=== PATIENT | female | born 1995 | race Two or more races ===

== ENCOUNTER 2018-12-01 05:18 | Inpatient (IN) | payer OTHER ==
[~2018-12-01] VITALS: Ht 154.9 cm; Wt 65.3 kg
[2018-12-01] VITALS (12 sets, daily range): BP systolic 121–136; BP diastolic 72–88; PULSE 72–88; RESP 14–28; Ht 154.9 cm; Wt 65.3 kg
[2018-12-01] MEDS ORDERED: ALBU18HF INHALATION (06:14)
[2018-12-01] MEDS: LACTATED RINGER'S 1,000 ML IV SCH ×3 (06:27→19:58)
[2018-12-01] MEDS ORDERED: ALBUTEROL 0.083% (NEB) 2.5 MG/3 ML AMP HHN PRN (07:00)
[2018-12-01] MEDS ORDERED: OXYCODONE/ACETAMINOPHEN (5/325) TAB PO PRN ×2 (07:00)
[2018-12-01] MEDS ORDERED: HYDROmorphONE 1 MG/5 ML IV SYRINGE IV PRN ×3 (07:00)
[2018-12-01] MEDS ORDERED: MEPERIDINE 25 MG INJ IV PRN (07:00)
[2018-12-01] MEDS ORDERED: ONDANSETRON 4 MG INJ IV PRN ×2 (07:00→08:00)
--- NOTE | 2018-12-01 07:03 | PREAC ---
Date/Time of Note Date/Time of Note DATE: 12/01/18 TIME: 07:01 Anesthesia Eval and Record Evaluation Time Pre-Procedure Interview DATE: 12/01/18 TIME: 07:01 Age 23 Sex female NPO: 8 hrs Preoperative diagnosis right ovarian cyst Planned procedure exploratory laparotomy, right ovarian cystectomy, possible right salpingo ophorectomy Past Medical History Past Medical History: Includes Pulm: Smoking Hx (1 cig every 1-2 days, smoked yesterday), Asthma (last symptoms several months ago, r/t weather changes) Surgery & Anesthesia Issues No known issue Meds Anticoagulation: No Beta Binh within 24 hr: No Reason Beta Binh not given: Pt. not on B-Binh Reported Medications Albuterol Sulfate* (Ventolin HFA*) 18 Gm Hfa.aer.ad, 2 PUFF INHALATION Q4H, #1 INHALER 12/01/18 Current Medications Lactated Ringer's 1,000 ml @ 125 mls/hr Q8H IV Last administered on 12/01/18at 06:27; Admin Dose 125 MLS/HR; Start 12/01/18 at 06:30 Meds reviewed: Yes Allergies Coded Allergies: No Known Allergy (Unverified , 12/01/18) Allergies Reviewed: Yes Labs/Studies Labs Reviewed: Reviewed by anesthesiologist Result Diagram: 12/01/18 0555 12/01/18 0555 Laboratory Tests 12/01/18 05:55 test: Negative Pre-procedure Exam Last vitals Vital Signs Date Temp Pulse Resp B/P (MAP) Pulse Ox O2 O2 Flow FiO2 Time Delivery Rate 12/01/18 98.9 72 18 128/81 95 Room Air 06:10 (97) Airway: Adequate mouth opening, Adequate thyromental dist Mallampati: Mallampati II Teeth: Normal Lung: Normal Heart: Normal ASA Physical Status ASA physical status: 2 Emergency: None Planned Anesthetic General/MAC: ETT Planned Pain Management Parenteral pain med, Local by surgeon Pre-operative Attestations Prior to commencing anesthesia and surgery, the patient was re-evaluated, there was verification of: *The patient's identity *The results of appropriate recent lab work and preoperative vital signs *The above evaluation not changing prior to induction *Anesthetic plan, risk benefits, alternative and complications discussed with patient/family; questions answered; patient/family understands, accepts and wishes to proceed. SALAPATE,PITO Dec 01, 2018 07:03
[2018-12-01] MEDS ORDERED: LIDOCAINE 4% (MPF) 5 ML INJ ONE (07:05)
[2018-12-01] MEDS ORDERED: ROCURONIUM 50 MG INJ ONE (07:09)
[2018-12-01] MEDS ORDERED: HYDROmorphONE 2 MG/ML SYG ONE (07:09)
[2018-12-01] MEDS ORDERED: LIDOCAINE 2% (SDV) 5 ML INJ ONE (07:09)
[2018-12-01] MEDS ORDERED: MIDAZOLAM 1 MG/ML 2 ML INJ ONE (07:09)
[2018-12-01] MEDS ORDERED: PROPOFOL 20 ML ONE (07:09)
[2018-12-01] MEDS ORDERED: CEFAZOLIN 1 GM INJ ONE (07:12)
--- NOTE | 2018-12-01 07:39 | HP ---
Date/Time of Note Date/Time of Note DATE: 12/01/18 TIME: 07:36 Assessment/Plan VTE Prophylaxis SCD applied (from Nsg): Yes Pharmacological prophylaxis: LMWH Lines/Catheters IV Catheter Type (from Nrsg): Peripheral IV Assessment/Plan Assessment/Plan Assessment: persistent R. ovarian cyst Plan: Exploratory laparotomy R. ovarian cystectomy Result Diagram: 12/01/18 0555 12/01/18 0555 Results 24hrs Laboratory Tests Test 12/01/18 05:55 White Blood Count 4.3 L Red Blood Count 4.51 Hemoglobin 13.4 Hematocrit 40.3 Mean Corpuscular Volume 89.4 Mean Corpuscular Hemoglobin 29.7 Mean Corpuscular Hemoglobin Concent 33.3 Red Cell Distribution Width 12.6 Platelet Count 191 Mean Platelet Volume 10.9 H Immature Granulocytes % 0.000 L Neutrophils % 36.0 L Lymphocytes % 47.7 Monocytes % 11.2 H Eosinophils % 4.2 Basophils % 0.9 Nucleated Red Blood Cells % 0.0 Immature Granulocytes # 0.000 Neutrophils # 1.6 Lymphocytes # 2.1 Monocytes # 0.5 Eosinophils # 0.2 Basophils # 0.0 Nucleated Red Blood Cells # 0.0 CBC Results Faxed/Phoned 1 *H Prothrombin Time 11.5 L Prothrombin Time Ratio 0.9 INR International Normalized Ratio 0.83 Activated Partial Thromboplast Time 26.2 Sodium Level 145 H Potassium Level 4.2 Chloride Level 113 H Carbon Dioxide Level 21 Anion Gap 11 Blood Urea Nitrogen 16 Creatinine 0.92 Est Glomerular Filtrat Rate mL/min > 60 Glucose Level 88 Calcium Level 9.0 Total Bilirubin 0.5 Direct Bilirubin 0.00 Indirect Bilirubin 0.5 Aspartate Amino Transf (AST/SGOT) 32 Alanine Aminotransferase (ALT/SGPT) 29 Alkaline Phosphatase 75 Total Protein 7.2 Albumin 4.0 Globulin 3.20 Albumin/Globulin Ratio 1.25 HPI/ROS Admit Date/Time Admit Date/Time Dec 01, 2018 at 05:18 Hx of Present Illness 23 YO patient with persistent ovarian cyst has been scheduled for Exploratory laparotomy and cystectomy. Risks and benefits and indications and alternatives discussed with patient. Possible risks of infection, bleeding, damage to other organs, blood transfusion discussed with patient. all her questions answered. Informed consent obtained. ROS Constitutional: no complaints, improved Eyes: no complaints ENT: no complaints Respiratory: no complaints Cardiovascular: no complaints Gastrointestinal: no complaints Genitourinary: no complaints Musculoskeletal: no complaints Skin: no complaints Neurologic: no complaints Endocrine: no complaints Lymphatic: no complaints Psychological: no complaints, nl mood/affect Immunologic: no complaints PMH/Family/Social Past Medical History Asthma Medications Current Medications Lactated Ringer's 1,000 ml @ 125 mls/hr Q8H IV Last administered on 12/01/18at 06:27; Admin Dose 125 MLS/HR; Start 12/01/18 at 06:30 Hydromorphone HCl (Dilaudid) 0.2 mg PACU PRN IV MILD PAIN 1-3; Start 12/01/18 at 07:00; Stop 12/01/18 at 13:00 Hydromorphone HCl (Dilaudid) 0.4 mg PACU PRN IV MOD PAIN 4-6; Start 12/01/18 at 07:00; Stop 12/01/18 at 13:00 Hydromorphone HCl (Dilaudid) 0.6 mg PACU PRN IV SEVERE PAIN 7-10; Start 12/01/18 at 07:00; Stop 12/01/18 at 13:00 Oxycodone/ Acetaminophen (Percocet (5/ 325)) 1 tab PACU ORDER PRN PO .PAIN 1-5; Start 12/01/18 at 07:00; Stop 12/01/18 at 13:00 Oxycodone/ Acetaminophen (Percocet (5/ 325)) 2 tab PACU ORDER PRN PO .PAIN 6-10; Start 12/01/18 at 07:00; Stop 12/01/18 at 13:00 Ondansetron HCl (Zofran Inj) 4 mg PACU ORDER PRN IV NAUSEA/VOMITING; Start 12/01/18 at 07:00; Stop 12/01/18 at 13:00 Albuterol (Proventil 0.083% (Neb)) 2.5 mg PACU ORDER PRN HHN .WHEEZING; Start 12/01/18 at 07:00; Stop 12/01/18 at 13:00 Meperidine HCl (Demerol) 25 mg PACU ORDER PRN IV .RIGORS; Start 12/01/18 at 07:00; Stop 12/01/18 at 13:00 Coded Allergies: No Known Allergy (Unverified , 12/01/18) Past Surgical History C/S x 1 Family History Significant Family History: no pertinent family hx Social History Alcohol Use: none Smoking Status: Current some day smoker Drug Use: none Exam/Review of Systems Vital Signs Vitals Vital Signs Date Temp Pulse Resp B/P (MAP) Pulse Ox O2 O2 Flow FiO2 Time Delivery Rate 12/01/18 98.9 72 18 128/81 95 Room Air 06:10 (97) Exam Constitutional: alert, oriented, well developed Psych: no complaints, nl mood/affect Head: normocephalic, atraumatic Eyes: nl conjunctiva, EOMI, nl lids, nl sclera, PERRL ENMT: nl external ears & nose, nl lips & teeth, nl nasal mucosa & septum Neck: supple, non-tender Respiratory: clear to auscultation, normal air movement Cardiovascular: regular rate and rhythm, nl pulses Gastrointestinal: soft, nl liver, spleen, non-tender Musculoskeletal: nl extremities to inspection Extremities: normal pulses Neurological: PASSENGER [employer] II-XII intact, nl mental status, nl speech, nl strength Skin: nl turgor; No rash or lesions Lymph: nl lymph nodes MARYSOL PRINCE MD Dec 01, 2018 07:39
[2018-12-01] MEDS ORDERED: DEXAMETHASONE 4 MG/ML 5 ML INJ ONE (07:51)
[2018-12-01] MEDS ORDERED: METOCLOPRAMIDE 10 MG INJ ONE (07:51)
[2018-12-01] MEDS ORDERED: ONDANSETRON 4 MG INJ ONE (07:51)
[2018-12-01] MEDS ORDERED: FAMOTIDINE 20 MG INJ ONE (07:52)
[2018-12-01] MEDS ORDERED: HYDROCODONE/APAP (5/325) TAB PO PRN (08:00)
[2018-12-01] MEDS ORDERED: GLYCOPYRROLATE 0.4 MG INJ ONE (08:27)
[2018-12-01] MEDS ORDERED: NEOSTIGMINE 3 MG/3 ML SYRINGE ONE (08:27)
--- NOTE | 2018-12-01 10:26 | OPR ---
Date/Time of Note Date/Time of Note DATE: 12/01/18 TIME: 10:22 Operative Report Procedure Date: Dec 01, 2018 Preoperative Diagnosis Left Dermoid Cyst Postoperative Diagnosis same Operation/Procedure Performed Left ovarian cystectomy Surgeon Siomara Salcido MD Religion Teacher None Anesthesia Type: general Estimated Blood Loss: 10 - 50 ml's Transfusion none Specimen Left Dermoid Cyst Grafts/Implants none Tubes/Drains Dumont Cath Complications none Pt Condition Post Procedure: stable Disposition: PACU Procedure Description FINDINGS: Left 9 cm Dermoid Cyst INFORMED CONSENT: Please see my preop H and P for the consent process. DESCRIPTION OF PROCEDURE: She was taken to the operating room. General anesthesia was induced. She was prepped and draped in the usual sterile fashion. Vaginal prep and abdominal prep was done. Dumont catheter was inserted. She was in the supine position. After she was prepped and draped, surgical time out was done, surgery and patient was identified. Then, we proceeded and made a Pfannenstiel skin incision. Incision was taken down in layers. The fascia was cut, undermined, from the underlying muscle using sharp and blunt dissection. All the bleeders were cauterized. the cyst was externalized and wrapped with laps. The cyst wall was cut using knife and the cyst was and dissected off the ovary using sharp and blunt dissection. the cyst was removed intact. 3-0 Chromic and then Vicryl was used to stop the bleeding and reapproximate the ovary. there was no bleeding from the surgical site. I explored the abdomen, there were no laparotomy packs left inside. The peritoneum was closed using 2-0 Vicryl. The rectus muscles reapproximated using 2-0 Vicryl. Rectus muscles, rectus fascia were evaluated, all bleeders cauterized. Rectus fascia was closed using #1 Vicryl. Subcutaneous tissue was cleaned, irrigated, all bleeders cauterized and closed using 3-0 plain and then the skin closed using 4-0 Monocryl in a subcuticular fashion. All counts were correct. The patient tolerated the procedure well. SIOMARA SALCIDO MD Dec 01, 2018 10:26
--- NOTE | 2018-12-01 10:38 | PAC ---
Date/Time of Note Date/Time of Note DATE: 12/01/18 TIME: 10:38 Post-Anesthesia Notes Post-Anesthesia Note Last documented vital signs Vital Signs Date Temp Pulse Resp B/P (MAP) Pulse Ox O2 O2 Flow FiO2 Time Delivery Rate 12/01/18 98.8 73 18 121/76 94 Room Air 10:18 (91) 12/01/18 8.0 09:01 Activity: WNL Respiratory function: WNL Cardiovascular function: WNL Mental status: Baseline Pain reasonably controlled: Yes Hydration appropriate: Yes Nausea/Vomiting absent: Yes PITO SPRING Dec 01, 2018 10:38
[2018-12-01] MEDS: HYDROCODONE/APAP (5/325) TAB PO PRN ×2 (11:43→17:44)
[2018-12-01] MEDS: morphine 2 MG INJ IV PRN ×3 (13:09→19:53)
[2018-12-01] MEDS: KETOROLAC 30 MG INJ IV PRN ×2 (16:17→22:16)
[2018-12-01] MEDS: MAGNESIUM HYDROXIDE 30ML CUP PO SCH (21:28)
[2018-12-01] MEDS: MINERAL OIL 30ML CUP PO SCH (21:28)
[2018-12-02 01:56] VITALS: BP 124/75; PULSE 81; RESP 17
[2018-12-02] MEDS: KETOROLAC 30 MG INJ IV PRN (04:08)
[2018-12-02] MEDS: LACTATED RINGER'S 1,000 ML IV SCH (04:08)
[2018-12-02 07:25] VITALS: BP 131/76; PULSE 98; RESP 18
[2018-12-02] MEDS ORDERED: MAGNESIUM CITRATE 300 ML BTL PO ONE (07:30)
[2018-12-02] MEDS: HYDROCODONE/APAP (5/325) TAB PO PRN (07:52)
--- NOTE | 2018-12-02 08:55 | DS ---
Date/Time of Note Date/Time of Note DATE: 12/02/18 TIME: 08:52 Discharge Summary Admission/Discharge Info Admit Date/Time Dec 01, 2018 at 05:18 Discharge Date/Time December 02, 2018 Discharge Diagnosis Status post left cystectomy for left dermoid cyst Patient Condition: Good Consults None Procedures Left ovarian cystectomy Hx of Present Illness 23 YO patient with persistent ovarian cyst has been scheduled for Exploratory laparotomy and cystectomy. Risks and benefits and indications and alternatives discussed with patient. Possible risks of infection, bleeding, damage to other organs, blood transfusion discussed with patient. all her questions answered. Informed consent obtained. Hospital Course She underwent left ovarian cystectomy for left dermoid cyst without any complications. Postoperative care was uneventful. She remained afebrile with vital signs stable. She had bowel movement already. She is ambulating well. She has good pain control with oral pain medications. She desires to go home. Home Meds Reported Medications Albuterol Sulfate* (Ventolin HFA*) 18 Gm Hfa.aer.ad, 2 PUFF INHALATION Q4H, #1 INHALER 12/01/18 Follow-up Plan [address] Salcido Primary Care Provider Not On Staff Doctor Pending Labs Laboratory Tests Test 12/02/18 05:15 12/02/18 05:53 White Blood Count 7.2 10^3/ul (4.8-10.8) Red Blood Count 3.74 10^6/ul (4.20-5.40) Hemoglobin 11.1 g/dl (12.0-16.0) Hematocrit 33.0 % (37.0-47.0) Mean Corpuscular Volume 88.2 fl (82.0-101.0) Mean Corpuscular Hemoglobin 29.7 pg (29.0-33.0) Mean Corpuscular 33.6 g/dl (32.0-37.0) Hemoglobin Concent Red Cell Distribution Width 12.5 % (11.5-14.5) Platelet Count 148 10^3/UL (140-415) Mean Platelet Volume 10.6 fl (7.4-10.4) Immature Granulocytes % 0.300 % (0.001-0.429) Neutrophils % 65.2 % (39.0-77.0) Lymphocytes % 22.8 % (15.0-51.0) Monocytes % 10.6 % (0.0-11.0) Eosinophils % 0.8 % (0.0-7.0) Basophils % 0.3 % (0.0-2.0) Nucleated Red Blood Cells % 0.0 /100WBC (0.0-0.0) Immature Granulocytes # 0.020 10^3/ul (0.0-0.031) Neutrophils # 4.7 10^3/ul (1.6-7.5) Lymphocytes # 1.6 10^3/ul (0.8-2.9) Monocytes # 0.8 10^3/ul (0.3-0.9) Eosinophils # 0.1 10^3/ul (0.0-0.5) Basophils # 0.0 10^3/ul (0.0-0.1) Nucleated Red Blood Cells # 0.0 10^3/ul (0.0-0.0) Lab Scanned Report [facility] [id number] MARYSOL SALCIDO MD Dec 02, 2018 08:55
[2018-12-02] MEDS: MAGNESIUM HYDROXIDE 30ML CUP PO SCH (09:00)
[2018-12-02] MEDS: MINERAL OIL 30ML CUP PO SCH (09:00)
[2018-12-02] MEDS ORDERED: ENOXAPARIN 40 MG/0.4 ML SYG SC SCH (09:00)
== END 2018-12-02 11:15 | disposition home or self-care (01) | DRG 743 ==
LOC: REC 05:18 → EDSTATUS 07:30 → 2NE 10:00
PROVIDERS: ADMIT Specialist; ATTEND Specialist
PROC: 0UB10ZZ Excision of Left Ovary, Open Approach (ICD-10-PCS; principal; 2018-12-01 07:30)
DX: D27.1 Benign neoplasm of left ovary (principal)
CPT/HCPCS: 80053; 85025; 85610; 85730; 87086; 88307; J0690; J1100; J1170; J1650; J1885; J2250; J2270; J2405; J2710; J2765; J7120